=== PATIENT | female | born 1975 | race Caucasian/White ===

== ENCOUNTER 2023-01-26 19:43 | Outpatient (REF) | payer BC, SELFPAY ==
[2023-02-01 08:12] LABS: Age Gdln ACOG Testing Note (.); HPV Aptima Negative (Negative); IGP, Aptima HPV, rfx 16/18,45 Note (.)
== END 2023-01-26 19:44 | disposition home or self-care (01) ==
LOC: LAB 19:43
PROVIDERS: Visit Provider Obstetrics & Gynecology
DX: Z01.419 Encounter for gynecological examination (general) (routine) without abnormal findings (principal)
CPT/HCPCS: 87624; G0145

== ENCOUNTER 2024-07-18 19:42 | Outpatient (REF) | payer BC, SELFPAY ==
--- OUTSIDE RECORDS SUMMARY | 2024-07-18 19:46 | XMS_ITS | CCD ---
Author Organization [facility] Care Team Providers Care Chemical Process Engineer Name Role Phone Gianna POOL Unavailable Unavailable MISFlaco, DR SOTELO Primary Care Unavailable AMARILYS, DR RODRIGUEZ Attending Unavailable AMARILYS, DR RODRIGUEZ Consulting Unavailable AMARILYS, DR RODRIGUEZ Admitting Unavailable JEET MOJIMMY Admitting Unavailable JEET MOUNIR Attending Unavailable FLORI MCGILL Primary Care Unavailable JENNIFER PANDA Attending Unavailable Flori Mcgill Attending Unavailable Flori Mcgill Primary Care Unavailable Flori Mcgill Attending Unavailable Flori Mcgill Primary Care Unavailable Flori Mcgill MD Primary Care Provider [phone] Allergies Allergy Classification Reported Allergen(s) Allergy Type Date of Onset Reaction(s) Facility (1 source) Acetaminophen / oxyCODONE Drug Allergy [facility] (1 source) Codeine Drug Allergy [facility] (1 source) Penicillin Drug Allergy [facility] (1 source) Penicillins Drug allergy (disorder) 2 [facility] ([place] Repository (3 sources) Codeine Drug Allergy 1 Unknown, Nausea And Vomiting [facility] Work Phone: (3 sources) penicillAMINE Drug Allergy 3 Unknown [facility] (2 sources) Acetaminophen / oxyCODONE Drug Allergy 1 Nausea And Vomiting [facility] (2 sources) Penicillin G Drug Allergy 1 Hives [facility] Medications Current Medications Medication Drug Class(es) Dates Sig (Normalized) Sig (Original) cholecalciferol 0.05 mg oral capsule (2 sources) Vitamin D cholecalciferol (Vitamin D-3) 50 MCG (1999) capsule Take by mouth Active citalopram 40 mg oral tablet (2 sources) Serotonin Reuptake Inhibitor Start: 02-07-2024 take 1 tablet by mouth once daily citalopram (CeleXA) 40 MG tablet Take 40 mg by mouth Daily 02/07/2024 Active montelukast 10 mg oral tablet (2 sources) Leukotriene Receptor Antagonist Start: 02-23-2024 take 1 tablet by mouth at bedtime montelukast (Singulair) 10 MG tablet Take 10 mg by mouth at bedtime 02/23/2024 Active omeprazole 40 mg delayed release oral capsule (2 sources) Proton Pump Inhibitor Start: 02-07-2024 take 1 capsule by mouth once daily omeprazole (PriLOSEC) [address] capsule Take 40 mg by mouth Daily 02/07/2024 Active terbinafine 250 mg oral tablet (4 sources) Allylamine Antifungal Start: 07-10-2024 take 1 tablet by mouth once daily terbinafine (LamISIL) 250 MG tablet Take 250 mg by mouth Daily 07/10/2024 Active Start: 04-11-2024 terbinafine (L amISIL) 1 % cream Apply affected area topically 2 times daily. 04/11/2024 Active Problems Active Problems Problem Classification Problem Date Documented Date Episodic/Chronic Esophageal disorders (1 source) Gastro-esophageal reflux disease without esophagitis; Translations: [Gastro-esophageal reflux disease without esophagitis] Onset: 02-16-2022 Chronic Immunizations and screening for infectious disease (1 source) Encounter for screening for human papillomavirus (HPV); Translations: [ENC SCREENING HUMAN PAPILLOMAVIRUS] Onset: 10-12-2021 Episodic Other screening for suspected conditions (not mental disorders or infectious disease) (9 sources) Encounter for screening for malignant neoplasm of cervix; Translations: [Encounter for screening for malignant neoplasm of colon] Onset: 09-23-2021 Episodic Unclassified (1 source) Dense breasts, unspecified; Translations: [Dense breasts, unspecified] Onset: 04-04-2024 Past or Other Problems Problem Classification Problem Date Documented Da te Episodic/Chronic Other upper respiratory infections (1 source) Acute pharyngitis, unspecified; Translations: [ACUTE PHARYNGITIS, UNSPECIFIED] Onset: 11-08-2016 Episodic Results Test Name Value Interpretation Reference Range Facility Liver Profileon 05-23-2024 Albumin [Mass/Vol] 5.0 g/dL Normal 3.5-5.2 [facility] Comment on above: Performed By: #### L IVP #### [address] [place] [address] Secretary Office Clerk: Gilberto Flores MD Alkaline Phos 62 U/L Normal 35-104 [facility] Comment on above: Performed By: #### L IVP #### [address] [place] [address] Secretary Office Clerk: Gilberto Flores MD ALT [Catalytic activity/Vol] 12 U/L Normal 0-32 [facility] Comment on above: Performed By: #### L IVP #### [place] [address] Secretary Office Clerk: Gilberto Flores MD AST [Catalytic activity/Vol] 18 U/L Normal 0-31 [facility] Comment on above: Performed By: #### L IVP #### [address] [place] [address] Secretary Office Clerk: Gilberto Flores MD Bilirubin [Mass/Vol] 0.3 mg/dL Normal 0.0-1.2 [facility] Comment on above: Performed By: #### L IVP #### [address] [place] [address] Secretary Office Clerk: Gilberto Flores MD Bilirubin, Indirect Can not be calculated Normal 0.0-1.0 [facility] Comment on above: Performed By: #### L IVP #### [address] [place] [address] Secretary Office Clerk: Gilberto Flores MD Bilirubin.indirect [Mass/Vol] mg/dL Normal 0.0-0.3 [facility] Comment on above: Performed By: #### L IVP #### [facility] [address] [place] [address] Secretary Office Clerk: Gilberto Flores MD Protein [Mass/Vol] 7.8 g/dL Normal 6.4-8.3 [facility] Comment on above: Performed By: #### L IVP #### [id number] [facility] [place] [address] Secretary Office Clerk: Gilberto Flores MD US breast BI completeon US breast BI complete [facility] [address] [place] [address] Ultrasound Report Signed Patient: HAWA BELTRE MR#: [id number] : 1975 Acct:[id number] Age/Sex: 48 / F Admit Date: 04/04/24 Loc: [facility] Attending Dr: Flori Mcgill Ordering Physician: Flori Mcgill Date of Service: 04/04/24 Procedure(s): US breast BI complete Accession Number(s): [id number] cc: Jennifer Panda; Flori Mcgill INDICATION: Screening sonogram for dense fibroglandular tissue. TECHNIQUE: Complete Ultrasound of both breasts. COMPARISON: Prior mammograms dated December 26, 2020 and March 28, 2024. FINDINGS: RIGHT BREAST: Sonographic evaluation reveals fibroglandular parenchyma, with no suspicious lesions appreciated. No areas of architectural distortion are noted. LEFT BREAST: Sonographic evaluation reveals fibroglandular parenchyma, with no suspicious lesions appreciated. No areas of architectural distortion are noted IMPRESSION: 1. Unremarkable bilateral breast sonogram.. OVERALL ASSESSMENT: BI-RADS Category 1: Negative RECOMMENDATION: Follow bilateral mammogram in one year or sooner if clinically indicated. Signed by Dougie Dela Cruz MD [address] [place], [place] [address] Dictated By: Dougie Dela Cruz MD DD/ [id number] Signed By: Dougie Dela Cruz MD 04/06/24 0752 Batch Dumper: [id number] 04/06/24 0750 Normal [facility] ([place]) MM tomosynthesis screening B Ion 03-28-2024 MM tomosynthesis screening [facility] [address] [place] [address] Mammography Report Signed Patient: HAWA BELTRE MR#: [id number] : 1975 Acct:[id number] Age/Sex: 48 / F Admit Date: 03/28/24 Loc: [facility] Attending Dr: Flori Mcgill Ordering Physician: Flori Mcgill Date of Service: 03/28/24 Procedure(s): MM tomosynthesis screening BI Accession Number(s): [id number] cc: Flori Mcgill Bilateral breast screening MAMMOGRAM: INDICATION: 48-year-old female who is asymptomatic, presents for bilateral screening mammogram. COMPARISON: Bilateral mammogram; 26 December 2020. TECHNIQUE: Bilateral breast digital CC/MLO mammograms. Breast 2-D/3-D tomosynthesis imaging/assessment was utilized. FINDINGS: Mammogram with type D density. The breasts are extremely dense, which lowers the sensitivity of mammography. No dominant mass. Right breast 12:00-4 cm from nipple 0.3 x 0.5 cm soft tissue nodule, unchanged from November 2020. No suspicious microcalcification clusters. There are benign calcifications. IMPRESSION: 1. The breasts are extremely dense, which lowers the sensitivity of mammography. No evidence of malignancy. 2. Right breast 12:00 small soft tissue nodule, unchanged from November 2020, stable. 3. Benign calcifications. Final ASSESSMENT: BI-RADS Category 2: Benign mammogram. RECOMMENDATION: Routine mammographic follow-up per [employer] (ACR) guidelines; February 2025. (Patient information has been entered into a reminder system with the target date for the next mammogram, and a result letter will be sent to the patient). The [place] Breast Density Notification Law (BDNL) went into effect April 2014. We are providing patients with information regarding the type of breast tissue density seen on their mammogram. Breast tissue normally varies in apparent radiographic density, with a predominance of: Type A) Fatty-replaced; Type B) Scattered; Type C) Heterogeneously-dense; or Type D) Extremely-dense; fibroglandular parenchymal elements. Dense breast tissue is a common finding and is not abnormal. However, dense breast tissue can make it harder to find breast malignancy (cancer), and may be associated with an increased risk of this malignancy. This information is provided to your patient in order to raise their awareness of these issues, and to encourage them to discuss their breast health with you. Please Note: 1. According to the [employer] (ACR), yearly mammograms are recommended starting at age 40 and continuing as long as a woman is in good health. Any changes noted on breast self-examination (BSE) should be reported promptly to the patient's healthcare provider. 2. Up to 10-15% of breast malignancies (cancers) are not detected by mammography. A normal mammogram should not preclude biopsy of a clinically suspicious and/or palpable abnormality, with a biopsy recommended if lesion is increasing in size or persistent for >3 months. 3. Breast MR is recommended for women with strong family history of breast malignancy and/or ovarian malignancy, or women who have been treated for Hodgkin's disease. Signed by Vicente Herrera MD [address] [place] [address] Dictated By: Vicente Herrera MD DD/ 23 Signed By: Vicente Herrera MD 03/28/241823 Batch Dumper: [id number] 03/28/241823 Normal [facility] ([place]) Basic Metabolic Profon 03-14 Anion gap [Moles/Vol] 13 mmol/L Normal 7-16 [facility] Comment on above: Performed By: #### B MP, CBCWD, LIVP, LIPR #### [address] [place] [address] Secretary Office Clerk: Gilberto Flores MD Calcium [Mass/Vol] 9.6 mg/dL Normal 8.6-10.2 [facility] Comment on above: Performed By: #### B MP, CBCWD, LIVP, LIPR #### [address] [place] [address] Secretary Office Clerk: Gilberto Flores MD Chloride [Moles/Vol] 104 mmol/L Normal 98-107 [facility] Comment on above: Performed By: #### B MP, CBCWD, LIVP, LIPR #### [address] [place] [address] Secretary Office Clerk: Gilberto Flores MD CO2 [Moles/Vol] 24 mmol/L Normal 22-29 [facility] Comment on above: Performed By: #### B MP, CBCWD, LIVP, LIPR #### [address] [place] [address] Secretary Office Clerk: Gilberto Flores MD Creatinine [Mass/Vol] 0.9 mg/dL Normal 0.50-1.00 [facility] Comment on above: Performed By: #### B MP, CBCWD, LIVP, LIPR #### [address] [place] [address] Secretary Office Clerk: Gilberto Flores MD GFR/1.73 sq M.predicted among non-blacks MDRD (S/P/Bld) [Vol rate/Area] 78 mL/min/{1.73_m2} Normal >60 [facility] Comment on above: Result Comment: These results are not intended for use in patients <18 years of age. eGFR results are calculated without a race factor using the 2020 CKD-EPI equation. Careful clinical correlation is recommended, particularly when comparing to results calculated using previous equations. The CKD-EPI equation is less accurate in patients with extremes of muscle mass, extra-renal metabolism of creatine, excessive creatine ingestion, or following therapy that affects renal tubular secretion. Performed By: #### B MP, CBCWD, LIVP, LIPR #### [address] [place] [address] Secretary Office Clerk: Gilberto Flores MD Glucose [Mass/Vol] 85 mg/dL Normal 74-99 [facility] Comment on above: Performed By: #### B MP, CBCWD, LIVP, LIPR #### [address] [address] Secretary Office Clerk: Gilberto Flores MD Potassium [Moles/Vol] 4.2 mmol/L Normal 3.5-5.0 [facility] Comment on above: Performed By: #### B MP, CBCWD, LIVP, LIPR #### [address] [place] [address] Secretary Office Clerk: Gilberto Flores MD Sodium [Moles/Vol] 141 mmol/L Normal 132-146 [facility] Comment on above: Performed By: #### B BARBI, CBCWD, LIVP, LIPR #### [address] [place] [address] Secretary Office Clerk: Gilberto Flores MD Urea nitrogen [Mass/Vol] 14 mg/dL Normal 6-20 [facility] Comment on above: Performed By: #### B MP, CBCWD, LIVP, LIPR #### [address] [address] Secretary Office Clerk: Gilberto Flores MD CBC with Diffon 03-14-2024 Abs. Basophil 0.04 k/uL Normal 0.00-0.20 [facility] Comment on above: Performed By: #### B MP, CBCWD, LIVP, LIPR #### [address] [place] [id number] Secretary Office Clerk: Gilberto Flores MD Abs.Imm.Granulocyt e 0.03 k/uL Normal 0.00-0.58 [facility] Comment on above: Performed By: #### B MP, CBCWD, LIVP, LIPR #### [place] [address] Secretary Office Clerk: Gilberto Flores MD Abs.Neutrophil (Seg) 7.15 k/uL Normal 1.80-7.30 [facility] Comment on above: Performed By: #### B MP, CBCWD, LIVP, LIPR #### [place] [address] Secretary Office Clerk: Gilberto Flores MD Basophils/100 WBC (Bld) 0 % Normal 0.0-2.0 [facility] Comment on above: Performed By: #### B MP, CBCWD, LIVP, LIPR #### [place] [address] Secretary Office Clerk: Gilberto Flores MD Eosinophils (Bld) [#/Vol] 0.09 10*3/uL Normal 0.05-0.50 [facility] Comment on above: Performed By: #### B MP, CBCWD, LIVP, LIPR #### [place] [address] Secretary Office Clerk: Gilberto Flores MD Eosinophils/100 WBC (Bld) 1 % Normal 0-6 [facility] Comment on above: Performed By: #### B MP, CBCWD, LIVP, LIPR #### [place] [address] Secretary Office Clerk: Gilberto Flores MD Erythrocyte distribution width (RBC) [Ratio] 13.1 % Normal 11.5-15.0 [facility] Comment on above: Performed By: #### B MP, CBCWD, LIVP, LIPR #### [address] [place] [address] Secretary Office Clerk: Gilberto Flores MD Hematocrit (Bld) [Volume fraction] 38.6 % Normal 34.0-48.0 [facility] Comment on above: Performed By: #### B MP, CBCWD, LIVP, LIPR #### [place] [address] Secretary Office Clerk: Gilberto lFores MD Hemoglobin (Bld) [Mass/Vol] 12.8 g/dL Normal 11.5-15.5 [facility] Comment on above: Performed By: #### B MP, CBCWD, LIVP, LIPR #### [place] [address] Secretary Office Clerk: Gilberto Flores MD Immature granulocytes/100 WBC (Bld) 0 % Normal 0.0-5.0 [facility] Comment on above: Performed By: #### B MP, CBCWD, LIVP, LIPR #### [place] [address] Secretary Office Clerk: Gilberto Flores MD Lymphocytes (Bld) [#/Vol] 2.09 10*3/uL Normal 1.50-4.00 [facility] Comment on above: Performed By: #### B MP, CBCWD, LIVP, LIPR #### [place] [address] Secretary Office Clerk: Gilberto Flores MD Lymphocytes/100 WBC (Bld) 21 % Normal 20.0-42.0 [facility] Comment on above: Performed By: #### B MP, CBCWD, LIVP, LIPR #### [address] [place] [address] Secretary Office Clerk: Gilberto Flores MD MCH (RBC) [Entitic mass] 31.1 pg Normal 26.0-35.0 [facility] Comment on above: Performed By: #### B MP, CBCWD, LIVP, LIPR #### [address] [place] [address] Secretary Office Clerk: Gilberto Flores MD MCHC (RBC) [Mass/Vol] 33.2 g/dL Normal 32.0-34.5 [facility] Comment on above: Performed By: #### B MP, CBCWD, LIVP, LIPR #### [address] [place] [address] Secretary Office Clerk: Gilberto Flores MD MCV (RBC) [Entitic vol] 93.9 fL Normal 80.0-99.9 [facility] Comment on above: Performed By: #### B MP, CBCWD, LIVP, LIPR #### [address] [place] [address] Secretary Office Clerk: Gilberto Flores MD Monocytes (Bld) [#/Vol] 0.52 10*3/uL Normal 0.10-0.95 [facility] Comment on above: Performed By: #### B MP, CBCWD, LIVP, LIPR #### [address] [place] [address] Secretary Office Clerk: Gilberto Flores MD Monocytes/100 WBC (Bld) 5 % Normal 2.0-12.0 [facility] Comment on above: Performed By: #### B MP, CBCWD, LIVP, LIPR #### [address] [place] [address] Secretary Office Clerk: Gilberto Flores MD Neutrophil (Seg) 72 % Normal 43.0-80.0 [facility] Comment on above: Performed By: #### B MP, CBCWD, LIVP, LIPR #### [address] [address] Secretary Office Clerk: Gilberto Flores MD Platelet mean volume (Bld) [Entitic vol] 9.7 fL Normal 7.0-12.0 [facility] Comment on above: Performed By: #### B MP, CBCWD, LIVP, LIPR #### [address] [address] Secretary Office Clerk: Gilberto Flores MD Platelets (Bld) [#/Vol] 333 10*3/uL Normal 130-450 [facility] Comment on above: Performed By: #### B MP, CBCWD, LIVP, LIPR #### [address] [address] Secretary Office Clerk: Gilberto Flores MD RBC (Bld) [#/Vol] 4.11 10*6/uL Normal 3.50-5.50 [facility] Comment on above: Performed By: #### B MP, CBCWD, LIVP, LIPR #### [address] [address] Secretary Office Clerk: Gilberto Flores MD WBC (Bld) [#/Vol] 9.9 10*3/uL Normal 4.5-11.5 [facility] Comment on above: Performed By: #### B MP, CBCWD, LIVP, LIPR #### [address] [address] Secretary Office Clerk: Gilberto Flores MD Lipid Profileon 03-14-2024 Cholesterol [Mass/Vol] 227 mg/dL High <200 [facility] Comment on above: Performed By: #### B MP, CBCWD, LIVP, LIPR #### [address] [place] [address] Secretary Office Clerk: Gilberto Flores MD Cholesterol in HDL [Mass/Vol] 54 mg/dL Normal >40 [facility] Comment on above: Performed By: #### B MP, CBCWD, LIVP, LIPR #### [address] [place] [address] Secretary Office Clerk: Gilberto Flores MD Cholesterol in LDL [Mass/Vol] 128 mg/dL High <100 [facility] Comment on above: Performed By: #### B MP, CBCWD, LIVP, LIPR #### [address] [place] [address] Secretary Office Clerk: Gilberto Flores MD Cholesterol in VLDL [Mass/Vol] 45 mg/dL Normal [facility] Comment on above: Result Comment: No n ormal range established. Performed By: #### B MP, CBCWD, LIVP, LIPR #### [address] [place] [address] Secretary Office Clerk: Gilberto Flores MD Triglyceride [Mass/Vol] 226 mg/dL High <150 [facility] Comment on above: Performed By: #### B MP, CBCWD, LIVP, LIPR #### [address] [place] [address] Secretary Office Clerk: Gilberto Flores MD Liver Profileon 03-14-2024 Albumin [Mass/Vol] 4.6 g/dL Normal 3.5-5.2 [facility] Comment on above: Performed By: #### B MP, CBCWD, LIVP, LIPR #### [address] [place] [address] Secretary Office Clerk: Gilberto Flores MD Alkaline Phos 50 U/L Normal 35-104 [facility] Comment on above: Performed By: #### B MP, CBCWD, LIVP, LIPR #### [facility] [address] [place] [address] Secretary Office Clerk: Gilberto Flores MD ALT [Catalytic activity/Vol] 9 U/L Normal 0-32 [facility] Comment on above: Performed By: #### B MP, CBCWD, LIVP, LIPR #### [facility] [address] [place] [address] Secretary Office Clerk: Gilberto Flores MD AST [Catalytic activity/Vol] 15 U/L Normal 0-31 [facility] Comment on above: Performed By: #### B MP, CBCWD, LIVP, LIPR #### [facility] [address] [place] [address] Secretary Office Clerk: Gilberto Flores MD Bilirubin [Mass/Vol] 0.3 mg/dL Normal 0.0-1.2 [facility] Comment on above: Performed By: #### B MP, CBCWD, LIVP, LIPR #### [facility] [address] [place] [address] Secretary Office Clerk: Gilberto Flores MD Bilirubin, Indirect Can not be calculated Normal 0.0-1.0 [facility] Comment on above: Performed By: #### B MP, CBCWD, LIVP, LIPR #### [facility] [address] [facility] [place] [address] Secretary Office Clerk: Gilberto Flores MD Bilirubin.indirect [Mass/Vol] mg/dL Normal 0.0-0.3 [facility] Comment on above: Performed By: #### B MP, CBCWD, LIVP, LIPR #### [address] [place] [address] Secretary Office Clerk: Gilberto Flores MD Protein [Mass/Vol] 7.3 g/dL Normal 6.4-8.3 [facility] Comment on above: Performed By: #### B MP, CBCWD, LIVP, LIPR #### [address] [address] Secretary Office Clerk: Gilberto Flores MD Cytology Cervical or vaginal smear or scraping studyon 01-26-2023 [facility] Surgical Specimenon 02-17-20 Surgical Specimen [facility] [address] [address] FINAL SURGICAL PATHOLOGY REPORT NAME: HAWA BELTRE Date of 02/16/2022 Collection: Medical Record [id number] Date of 02/16/2022 Number: Receipt: Age: 46 Y Sex: F Date 02/25/2022 12:09 Reported: Date Of : 1975 [facility] [id number] Admitting MOUNIR JEET Number: Physician: Uday PRATTPLJAD Ordering MOUNIR JEET Location: Physician: Accession Number: [id number] Additional Physicians:FLORI MCGILL Diagnosis: A. Duodenum, biopsy: Duodenal mucosa showing no pathologic alteration. B. Stomach, antrum, biopsy: Antral mucosa showing mild reactive gastropathy. ALEENA ROBBINS M.D. (Electronic Signature) Specimen Submitted: A. DUODENUM BIOPSY B. GASTRIC ANTRUM BIOPSY Clinical Notes: Procedure: EGD biopsy, colorectal cancer screening not high-risk Preoperative Dx: GERD, special screening for malignant neoplasm, colon Postoperative Dx:: Abdominal pain, GERD Microscopic Evaluation: Was performed. Gross Description: The specimen is received in two parts. Both parts are received in formalin labeled Hawa Beltre. A. duodenal biopsy and consists of 3 fragments of calvin soft tissue ranging from 0.1 cm to 0.4 cm. Entirely submitted in A1. B. antral biopsy and consists of a 0.5 cm fragment of calvin soft tissue. Entirely submitted in B1. (LIPSA:STEVE) CODES: [id number]; Department of Pathology Page 1 of 1 Normal [facility] PAP ACOG PANEL 2: 30 to 65on 09-29-2021 . . Normal [facility] Comment on above: Result Comment: Perf ormed at: WB Performed By: #### [id number] #### [facility] [address] [address] [address] Froilan Osborne Age Gdln ACOG Testing 30-65 Normal [facility] Comment on above: Performed By: #### [id number] #### [facility] [address] [place] [address] Dr. Froilan Osborne DIAGNOSIS: Comment [facility] Comment on above: Result Comment: NEGA TIVE FOR INTRAEPITHELIAL LESION OR MALIGNANCY. THIS SPECIMEN WAS RESCREENED PART OF OUR [employer]IT[employer] OPERATOR PROGRAM. Performed at: WB Performed By: #### [id number] #### [facility] [address] [place] [address] Dr. Froilan Osborne HPV Aptima Negative Normal Negative [facility] Comment on above: Result Comment: This nucleic acid amplification test detects fourteen high-risk HPV types (16,18,31,33,35,39,45,51,52,56,58,59,66,68) without differentiation. Performed at: =G Performed By: #### [id number] #### [facility] [address] [place] [address] Dr. Froilan Osborne Methodology: Comment Normal [facility] Comment on above: Result Comment: This liquid based ThinPrep(R) pap test was screened with the use of an image guided system. Performed at: WB Performed By: #### [id number] #### [facility] [address] [place] [address] Dr. Froilan Osborne Note: Comment Normal [facility] Comment on above: Result Comment: The Pap smear is a screening test designed to aid in the detection of premalignant and malignant conditions of the uterine cervix. It is not a diagnostic procedure and should not be used as the sole means of detecting cervical cancer. Both false-positive and false-negative reports do occur. . Performed at: WB Performed By: #### [id number] #### [facility] [address] [address] [address] Froilan Osborne Performed by: Comment Normal [facility] Comment on above: Result Comment: William Buckley, Repairer Sash And Door (ASCP) Performed at: WB Performed By: #### [id number] #### [facility] [address] [address] [address] Froilan Osborne QC reviewed by: Comment Normal [facility] Comment on above: Result Comment: Cait Mccoy, Supervisory Repairer [employer]ash And Door (ASCP) Performed at: WB Performed By: #### [id number] #### [facility] [address] [address] [address] Froilan Osborne Specimen adequacy: Comment Normal [facility] Comment on above: Result Comment: Sati sfactory for evaluation. No endocervical component is identified. Performed at: WB Performed By: #### [id number] #### [facility] [address] [address] [address] Froilan Osborne Vital Signs Date Time Vital Sign Value Performing Clinician Parish roland 07-18-2024 13:07-0400 Body height 165.1 cm Vennli Work Phone: [facility] 07-18-2024 13:07-0400 Body mass index (BMI) [Ratio] 24.46 kg/m2 Vennli Work Phone: [facility] 07-18-2024 13:07-0400 Body weight 66.68 kg Vennli Work Phone: [facility] 07-18-2024 13:07-0400 Diastolic blood pressure 70 mm[Hg] Vennli Work Phone: [facility] 07-18-2024 13:07-0400 Systolic blood pressure 112 mm[Hg] [employer] Work Phone: [facility] Healthcare Encounters Encounter Date Encounter Type Care Provider Facility Start: 07-18-2024 End: 07-18-2024 Bamboo flowsheet Jennifer Amarilys DO Work Phone: [facility] Start: 07-18-2024 End: 07-18-2024 Bamboo flowsheet Jennifer Amarilys DO Work Phone: [facility] Start: 07-18-2024 End: 07-18-2024 Patient encounter procedure Jennifer Amarilys DO Work Phone: [facility] Start: 07-18-2024 End: 07-18-2024 Periodic preventive med est patient 40-64yrs Jennifer Amarilys DO Work Phone: [facility] Comment on above: Well woman exam with routine gynecological exam; H/O: hysterectomy; Breast cancer screening by mammogram Start: 04-04-2024 End: 04-04-2024 ambulatory Flori Mcgill Facility:[facility] Start: 03-28-2024 End: 03-28-2024 ambulatory Flori Mcgill Facility:[facility] Start: 01-26-2023 End: 01-26-2023 ambulatory JENNIFER AMARILYS Not Available Start: 02-16-2022 End: 02-16-2022 ambulatory SAE MARCANO [facility] Start: 09-23-2021 End: 09-23-[address] [facility] Facility: Start: 11-08-2016 Ambulatory Gianna England PA-C Faci lity:[facility] Procedures Date Procedure Procedure Detail Performing Clinician Start: 01-26-2023 Cytp cerv/vag auto t hin layer prep mnl screen Jennifer Amarilys DO Work Phone: Start: 02-16-2022 DISCHARGE PATIENT MOUNI R JEET Start: 02-16-2022 Level iv surg pathol ogy gross&microscopic exam MOUNIR JEET Start: 02-16-2022 DIAGNOSIS FOR PROCEDURE MOUNIR JEET Start: 02-16-2022 FULL CODE MOUNIR BRADY D Start: 02-16-2022 PROCEDURE CONSENT MOUNI R JEET Start: 02-16-2022 DIET NPO MOUNIR BRADY D Start: 02-16-2022 NURSING COMMUNICATION Christos MARCANO Start: 02-16-2022 VERIFY INFORMED CONSENT SAE JEET Start: 02-16-2022 VITAL SIGNS MOUNIR BRADY D H/O: hysterectomy H/O: hysterectomy Jennifer Panda DO Work Phone: Plan of Treatment Date Care Activity Detail Author Start: 07-31-2025 End: 07-31-2025 Patient encounter procedure 07/31/2025 1:00 PM EDT Office Visit [facility] [address] [place] [address] Jennifer Panda, DO [address], [facility] Start: 07-18-2024 End: 07-18-2024 Patient encounter procedure 07/18/2024 1:00 PM EDT Office Visit [facility] [address] [place] [address] Jennifer Panda, DO [address], [place] [address] Arrived [facility] Comment on above: Arrived THIN PREP TIS PAP AN D HR HPV DNA THIN PREP TIS PAP AND HR HPV DNA Pathology and Cytology Routine Well woman exam with routine gynecological exam H/O: hysterectomy Ordered: 07/18/2024 [facility] Work Phone: Comment on above: Ordered: 07/18/2024 Payers Date Payer Category Payer Self-pay 2017 [facility] [id number] 1976 Unknown [id number] 1976 Unknown [id number] 1976 Unknown [id number] 1959 Unknown [id number] Unknown [id number] Unknown [id number] Social History Date Type Detail Facility Tobacco smoking stat [facility] Tobacco smoking consumption unknown [facility] Start: 1975 Sex assigned at Not on file [facility] Gender identity Not on file [facility] History of Present illness Narrative 07-18-2024 Neelima Bermeo LPN - 07/18/2024 1:00 PM EDT Note Date & Type Note Facility 07-18-2024 History of Presen t illness Narrative Reason for Appointment: Patient ID: Hawa Beltre is a 48 y.o. female who presents for Gynecologic Exam Patient presents today for Annual Exam. MEDICATIONS Current Outpatient Medications Medication Instructions cholecalciferol (Vitamin D-3) 50 MCG (1999) capsule Oral citalopram (CELEXA) 40 mg, Daily montelukast (SINGULAIR) 10 mg, Nightly omeprazole (PRILOSEC) 40 mg, Daily terbinafine (LamISIL) 1 % cream Apply affected area topically 2 times daily. terbinafine (LAMISIL) 250 mg, Daily ALLERGIES Allergies Allergen Reactions Codeine Unknown and Nausea And Vomiting Oxycodone-Acetaminophen Nausea And Vomiting Penicillin G Hives Penicillamine Unknown Other Reaction(s): Other (See Comments) PROBLEMS Active Ambulatory Problems Diagnosis Date Noted No Active Ambulatory Problems Resolved Ambulatory Problems Diagnosis Date Noted No Resolved Ambulatory Problems Past Medical History: Diagnosis Date Depression (CMS/HCC) Genital herpes H/O drug abuse Mood change S/P CARLY (total abdominal hysterectomy) Uterus disorder HISTORY PAST MEDICAL HISTORY SOCIAL HISTORY Past Medical History: Diagnosis Date Depression (CMS/HCC) Genital herpes H/O drug abuse Mood change S/P CARLY (total abdominal hysterectomy) Uterus disorder Social History Tobacco Use Smoking status: Not on file Smokeless tobacco: Not on file Substance Use Topics Alcohol use: Not on file Drug use: Not on file FAMILY HISTORY No family history on file. SURGICAL HISTORY Past Surgical History: Procedure Laterality Date TOTAL ABDOMINAL HYSTERECTOMY TUBAL LIGATION REVIEW OF SYSTEMS Review of Systems: Review of Systems Constitutional: Negative. HENT: Negative. Eyes: Negative. Respiratory: Negative. Cardiovascular: Negative. Gastrointestinal: Negative. Genitourinary: Negative. Musculoskeletal: Negative. Skin: Negative. Neurological: Negative. All other systems reviewed and are negative. Hematological: Negative. Endocrine: Negative. Allergic/Immunologic: Negative. OBJECTIVE Objective: Physical Exam Constitutional: Appearance: Normal appearance. She is well-developed. Genitourinary: Vulva normal. Vaginal cuff intact. Cervix is absent. Uterus is absent. Cardiovascular: Rate and Rhythm: Normal rate and regular rhythm. Abdominal: General: Bowel sounds are normal. There is no distension. Palpations: Abdomen is soft. Tenderness: There is no abdominal tenderness. There is no guarding or rebound. Musculoskeletal: General: No swelling. Normal range of motion. Right lower leg: No edema. Left lower leg: No edema. Neurological: Mental Status: She is alert and oriented to person, place, and time. Skin: General: Skin is warm and dry. Psychiatric: Mood and Affect: Mood normal. Behavior: Behavior normal. Vitals and nursing note reviewed. Exam conducted with a quality control tech present. Vitals: There is no height or weight on file to calculate BMI. BP: 112/70 No LMP recorded (lmp unknown). Patient has had a hysterectomy. ASSESSMENT & PLAN ICD-10-CM 1. Well woman exam with routine gynecological exam Z01.419 THIN PREP TIS PAP AND HR HPV DNA CANCELED: POCT urinalysis dipstick manually resulted 2. H/O: hysterectomy Z90.710 THIN PREP TIS PAP AND HR HPV DNA 3. Breast cancer screening by mammogram Z12.31 CANCELED: Bilateral screening mammogram CANCELED: Bilateral screening mammogram Annual: Patient presents today for an annual exam. Patient states she is doing well and has no complaints. Pap was obtained without difficulty and patient given mammogram order to have scheduled/obtained. No orders of the defined types were placed in this encounter. Follow Up: Patient is to return in one year for annual unless needed otherwise. Documented by Neelima Bermeo LPN on behalf of: Jennifer Panda DO documented in this encounter [facility] Evaluation note Note Date & Type Note Facility Evaluation note Diagnosis Well woman exam with routine gynecological exam Routine gynecological examination H/O: hysterectomy Acquired absence of both cervix and uterus Breast cancer screening by mammogram documented in this encounter [facility] Summary Purpose Family History No Family History Records FoundNo Family History Records FoundNo Family History Records FoundNo Family History Records FoundNo Family History Records FoundNo Family History Records Found Advance Directives No Advanced Directives Records FoundNo Advanced Directives Records FoundNo Advanced Directives Records FoundNo Advanced Directives Records FoundNo Advanced Directives Records FoundNo Advanced Directives Records Found Additional Source Comments INFORMATION SOURCE (unrecogn ized section and content) DATE CREATED AUTHOR 08/24/2017 [facility] DATE CREATED AUTHOR AUTHOR'S ORGANIZ ATION 10/23/2021 [facility] DATE CREATED AUTHOR AUTHOR'S ORGANIZ ATION 02/25/2022 [facility] DATE CREATED AUTHOR AUTHOR'S ORGANIZ ATION 01/28/2023 [facility] DATE CREATED AUTHOR AUTHOR'S ORGANIZ ATION 04/06/2024 [facility] ([place]) DATE CREATED AUTHOR AUTHOR'S ORGANIZ ATION 05/25/2024 [facility] Care Teams (unrecognized sec tion and content) Chemical Process Engineer Relationship Specialty Start Date End Date Flori Mcgill MD [address] [place] [address] PCP - General Family Medicine 01/26/23 Chemical Process Engineer Relationship Specialty Start Date End Date Flori Mcgill MD [address] [place] [address] PCP - General Family Medicine 01/26/23 Reason for Visit (unrecogniz ed section and content) Reason Comments Gynecologic Exam FOR RECORDS PERTAINING TO PATIENTS WHO ARE OR HAVE BEEN ENROLLED IN A CHEMICAL DEPENDENCY/SUBSTANCEABUSE PROGRAM, SOME INFORMATION MAY BE OMITTED. This clinical summary was aggregated from multiple sources. Caution should be exercised in using it in the provision of clinical care. This summary normalizes information from multiple sources, and as a consequence, information in this document may materially change the coding, format and clinical context of patient data. In addition, data may be omitted in some cases. CLINICAL DECISIONS SHOULD BE BASED ON THE PRIMARY CLINICAL RECORDS. [employer] provides no warranty or guarantee of the accuracy or completeness of information in this document.
[2024-07-24 13:08] LABS: Age Gdln ACOG Testing Note (.); HPV Aptima Negative (Negative); IGP, Aptima HPV, rfx 16/18,45 Note (.)
== END 2024-07-18 19:43 | disposition home or self-care (01) ==
LOC: LAB 19:42
PROVIDERS: Visit Provider Obstetrics & Gynecology
DX: Z01.419 Encounter for gynecological examination (general) (routine) without abnormal findings (principal); Z90.710 Acquired absence of both cervix and uterus
CPT/HCPCS: 87624; 88175